=== PATIENT | female | born 1995 | race African-American/Black ===

== ENCOUNTER 2017-02-10 11:30 | Outpatient (CLI) | payer OTHER ==
--- NOTE | 2017-02-10 12:32 | Ultrasound Report ---
ULTRASOUND PELVIC COMPLETE HISTORY: Abnormal uterine bleeding. TECHNIQUE: Transabdominal ultrasound with color Doppler interrogation. Longitudinal and transverse real-time images of the pelvis demonstrate that the uterus and ovaries are present and in a normal location. They are of normal echogenicity, contour and size. No pathologic changes in the adjacent tissues are noted. The endometrium appears normal measuring 5 mm in thickness. IMPRESSION: Normal exam. No explanation for abnormal uterine bleeding.
== END 2017-02-10 11:31 | disposition home or self-care (01) ==
LOC: US 11:30
PROVIDERS: ATTEND General Practice
DX: N93.9 Abnormal uterine and vaginal bleeding, unspecified (principal)
CPT/HCPCS: 76856